=== PATIENT | male | born 1975 | race Caucasian/White ===

== ENCOUNTER → 2017-01-18 | Outpatient (CLI) | payer OTHER ==
[~2017-01-18] MED LIST: DIAZ5 PO; IBUP-238 PO; LORT5TAB PO; TRAM50 PO
[2017-01-18 13:25] LABS: BLOOD GAS BASE EXCESS 2.3 mmol/L (-2-2); BLOOD GAS CARBOXYHEMOGLOBIN 1.6 % (0-4); BLOOD GAS HCO3 27 mmol/L (22-26); BLOOD GAS METHEMOGLOBIN 0.9 % (0-2); BLOOD GAS O2 HGB SATURATION 95 % (90-100); BLOOD GAS OXYGEN CONTENT 20.1 Vol % (12.0-20.0); BLOOD GAS PCO2 42 mmHg (38-42); BLOOD GAS PO2 94 mmHg (61-120); CRITICAL VALUE NO; DRAW SITE RT RADIAL; FIO2 21 %; NUMBER OF ARTERIAL PUNCTURES 1; STAT NO; TEMP CORR TO 98.6; ULNAR PULSE PRESENT
--- NOTE | 2017-01-19 08:59 | RSPPFT ---
DATE OF PROCEDURE: 01/18/17 COMMENTS: Spirometry shows FVC of 4.9 at 109% of predicted, FEV1 of 4.0 at 106%, FEV1/FVC ratio is normal. Flow is normal at FEF 25, FEF 50, FEF 75 and FEF 25-75. There is no response after acutely inhaled bronchodilator treatment. Lung volumes show residual volume is normal. TLC is normal. Diffusion capacity is normal. Flow volume loop indicates a normal pattern. Room air arterial blood gases show pH of 7.41, PCO2 of 40, PO2 of 94, BiCarb of 27 and O2 Saturation of 96%. 6-minute walk test shows no de-saturation. IMPRESSION: 1. Normal spirometry. 2. No response after bronchodilator treatment. 3. Normal lung volumes. 4. Normal diffusion capacity. 5. Blood gases show normal oxygenation. 6. 6-minute walk test shows no-desaturation.
== END ==
LOC: HRSP 12:17
PROVIDERS: ATTEND Specialist
DX: J45.20 Mild intermittent asthma, uncomplicated (principal); R06.00 Dyspnea, unspecified
CPT/HCPCS: 36600; 82805; 94060; 94620; 94726; 94729

== ENCOUNTER 2017-09-07 18:15 | Emergency (ER) | payer OTHER ==
[~2017-09-07] VITALS: Ht 172.7 cm; Wt 81.0 kg
[2017-09-07 18:26] VITALS: BP 153/75; PULSE 91; RESP 16; TEMP 100.3; O2SAT 99
[2017-09-07] MEDS ORDERED: ALBU6.7H INH (19:33)
[2017-09-07] MEDS ORDERED: BACL10TA PO (19:33)
[2017-09-07] MEDS ORDERED: CYCL10TA PO (19:33)
[2017-09-07] MEDS ORDERED: VALT1TAB PO (19:33)
[2017-09-07] MEDS ORDERED: GABA300C5 PO ×2 (19:33)
--- NOTE | 2017-09-07 20:35 | PD ---
HPI Chief Complaint: Allergic/Adverse Reaction Time Seen by Provider: 20:12 Travel History International Travel<30 days: No Contact w/Intl Traveler<30days: No Traveled to known affect area: No History of Present Illness HPI 42-year-old male to [facility] presents to the ED for evaluation of possible medication reaction. Patient states that he was being treated for respiratory infection last week, had severe pain in his ears and went back to [facility] today. He was diagnosed with bilateral otitis media with eardrum perforation bilaterally. He was prescribed cefuroxime and ofloxacin eye drops. He states that approximately 90 minutes after taking the first dose of cefuroxime he began to feel very short of breath, rigorous and according to the was running a low-grade fever. He states that his child goes to daycare and he feels as if he contracted the illness from the child. He is provided that he had an allergic reaction to penicillin but was prescribed medication Patient states that he is currently taking steroids, 30 mg a day 3 days. On presentation he denies shortness of breath, chest pain, palpitations. PFSH Past Medical History Asthma: Yes Diminished Hearing: No Headaches: Yes Musculoskeletal: Yes (FIBROMYALGIA) Respiratory: Yes (asthma) Immunizations Current: No Past Surgical History Abdominal Surgery: Yes (PYLORIC STENOSIS) Tonsillectomy: Yes Social History Alcohol Use: No Tobacco Use: No Substance Use: No Allergies-Medications (Allergen,Severity, Reaction): Coded Allergies: cefuroxime (Verified Allergy, Severe, 09/07/17) penicillin G (Unverified Allergy, Mild, HIVES, 09/07/17) Reported Meds & Prescriptions Reported Meds & Active Scripts Active Azithromycin 250 Mg Tab 250 Mg PO DIRECTED Take 2 tabs (500 mg) on day 1 then 1 tab daily x 4 days. Reported Gabapentin 300 Mg Cap 600 Mg PO HS Gabapentin 300 Mg Cap 300 Mg PO DAILY Flexeril (Cyclobenzaprine HCl) 10 Mg Tab 10 Mg PO TID Baclofen 10 Mg Tab 10 Mg PO QID Proventil Hfa 6.7 GM Inh (Albuterol Sulfate) 90 Mcg/Act Aer 1 Puff INH Q4H PRN Valtrex (Valacyclovir HCl) 1,000 Mg Tab 1,000 Mg PO DAILY Review of Systems Except as stated in HPI: all other systems reviewed are Neg Physical Exam Narrative GENERAL: Well-nourished, well-developed ill-appearing white male in no acute distress. SKIN: Warm and dry. HEAD: Normocephalic. Atraumatic. EYES: No scleral icterus. No injection or drainage. PERRLA. EOMI. ENT: Bilateral external canals are mildly edematous. Unable to get a clear view of the the tympanic membranes bilaterally but there is blood in the external canal. Nasal mucosa is moist. Oropharynx without erythema, edema or exudate. Uvula midline. Airway patent. No angioedema noted. NECK: Supple, trachea midline. No JVD or lymphadenopathy. CARDIOVASCULAR: Regular rate and rhythm without murmurs, gallops, or rubs. No carotid bruits. 2+ DP and radial pulses bilaterally. RESPIRATORY: Breath sounds tight and wheezing bilaterally. No accessory muscle use. GASTROINTESTINAL: Abdomen soft, non-tender, nondistended. + Bowel sounds MUSCULOSKELETAL: No cyanosis, or edema. BACK: Nontender without obvious deformity. No CVA tenderness. Data Data Last Documented VS Vital Signs Date Time Temp Pulse Resp B/P (MAP) Pulse Ox O2 Delivery O2 Flow Rate FiO2 09/07/17 18:26 100.3 91 16 153/75 (101) 99 Orders Orders Albuterol-Ipratropium Neb (Duoneb Neb) (09/07/17 20:30) Azithromycin (Zithromax) (09/07/17 21:00) Ed Discharge Order (09/07/17 20:54) [facility] Medical Decision Making Medical Screen Exam Complete: Yes Emergency Medical Condition: Yes Differential Diagnosis Otitis media versus perforated tympanic membrane versus medication reaction versus asthma exacerbation versus other Narrative Course 42-year-old male with PMH asthma presents to the ED for evaluation of possible medication reaction. States that approximate 90 minutes after taking a dose of cefuroxime today he began to feel short of breath, rigorous and was running a low-grade fever. Patient states that he was being treated for respiratory infection last week, had severe pain in his ears and went back to the urgent care today. He was diagnosed with bilateral otitis media with eardrum perforation bilaterally. Patient states that he is currently taking steroids , 30 mg a day 3 days. Vitals reviewed. On exam this is a nontoxic-appearing white male in no acute distress. Unable to clearly see the tympanic membranes but there is blood in bilateral ear canals. Oropharynx without erythema, edema , exudate. Ears wheezing bilaterally. Patient was administered duo nebs 2. He is instructed to Taking cefuroxime, provided a prescription for azithromycin , first dose administered in the ED. He is instructed to continue to treat symptomatically, continue with the ofloxacin eardrops, steroids and daily nebulizer treatments. We discussed reasons to return to the ED. He is stable and discharged home. Diagnosis Primary Impression: Bilateral otitis media with spontaneous rupture of eardrum Additional Impression: Medication reaction Qualified Codes: T88.7XXA - Unspecified adverse effect of drug or medicament, initial encounter Referrals: Ear / Nose / Throat Specialist Additional Instructions: Rest, hydrate. Begin antibiotics tomorrow and take them until every pill is gone. Continue with prednisone as previously prescribed. Continue with ofloxacin drops as previously prescribed. Continue with at-home nebulizer treatments as previously prescribed. 600-800 mg of ibuprofen up to 3 times a day for ear pain. Nothing else in the ear but drops. Follow-up with the staple shear operator as planned. Return to the ED for worsening symptoms or any urgent or emergent medical condition. Med/Other Pt SpecificInfo: Prescription(s) given Scripts Azithromycin (Azithromycin) 250 Mg Tab 250 MG PO DIRECTED for Infection, #6 TAB 0 Refills Take 2 tabs (500 mg) on day 1 then 1 tab daily x 4 days. Prov: Dottie Patel MD 09/07/17 Disposition: 01 DISCHARGE HOME Condition: Stable Deb Evans Sep 07, 2017 20:35
[2017-09-07] MEDS: RESP: ALBUTEROL 2.5 MG/IPRATROPIUM 0.5 MG NEB (SCH) INH ×2 (20:39→20:45)
[2017-09-07] MEDS ORDERED: AZIT250T3 PO (20:51)
[2017-09-07] MEDS ORDERED: AZITHROMYCIN 250 MG TAB PO ONE (21:00)
== END 2017-09-07 21:01 | disposition home or self-care (01) ==
LOC: PHED 18:15 → PHEFT 21:01
DX: H66.93 Otitis media, unspecified, bilateral (principal); H72.93 Unspecified perforation of tympanic membrane, bilateral; T88.7XXA Unspecified adverse effect of drug or medicament, initial encounter; J45.909 Unspecified asthma, uncomplicated; R06.02 Shortness of breath
CPT/HCPCS: 94640; 94664; 99284